=== PATIENT | female | born 1990 | race Caucasian/White ===

== ENCOUNTER → 2018-10-03 | Outpatient (CLI) | payer OTHER ==
--- NOTE | 2018-10-03 15:32 | US ---
EXAMINATION TYPE: Transabdominal DATE OF EXAM: 02/14/18 COMPARISON: NONE CLINICAL HISTORY: Z36 Confirm Dates. EXAM PERFORMED: Transabdominal (TA) EXAM MEASUREMENTS: GESTATIONAL AGE / DATING Physician Established: Not yet established Dates by LMP: ( 9 weeks/4 days) EDC: 05/04/19 Dates by First Scan: No previous this is first scan Dates by Current Scan for: (9 weeks/1 days) EDC: 05/07/19 MATERNAL ANATOMY Uterus: 13.5 x 8.0 x 5.4cm Right Ovary: 2.8 x 1.5 x 1.3cm Left Ovary: 3.1 x 2.2 x 1.9cm Post CDS / Adnexa: wnl Presence of free fluid: no GESTATION / SURVEY CRL: 2.4cm ( 9 weeks/1 days) Yolk Sac (normal less than 6mm): 2mm Heart Rate: 173 bpm Rhythm: Normal IUP: Live IUP Date of LMP: 05/04/19 IMPRESSION: Single live intrauterine with a sonographic age of 9 weeks and 1 day and estimated date of delivery of 05/07/2019, concordant with menstrual age.
== END | disposition home or self-care (01) ==
LOC: RADUSWWP 13:35
PROVIDERS: ATTEND Obstetrics & Gynecology
DX: Z36.9 Encounter for antenatal screening, unspecified (principal)
CPT/HCPCS: 76801

== ENCOUNTER 2019-04-24 03:07 | Inpatient (IN) | payer OTHER ==
[2019-04-24] MEDS ORDERED: LIDOCAINE 0.5% (PF) 5 MG/ML (50 ML SDV) SQ PRN (03:37)
[2019-04-24] MEDS ORDERED: CARBOPROST TROMETHAMINE 250 MCG/ML 1 ML AMP IM PRN (03:37)
[2019-04-24] MEDS ORDERED: OXYTOCIN 10 UNIT/ML 1 ML VIAL IM PRN (03:37)
[2019-04-24] MEDS ORDERED: METHYLERGONOVINE 0.2 MG/ML 1 ML AMP IM PRN (03:37)
[2019-04-24] MEDS ORDERED: TERBUTALINE 1 MG/ML VIAL SQ PRN (03:37)
[2019-04-24] MEDS: LACTATED RINGERS 1,000 ML IV SCH ×2 (03:55→06:24)
[2019-04-24] MEDS ORDERED: BUTORPHANOL 1 MG/ML 1 ML VIAL IV PRN (04:09)
[2019-04-24 04:21] LABS: Basophils % (A) 0 %; Eosinophils # (A) 0.2 k/uL (0-0.7); Eosinophils % (A) 1 %; HCT 36.7 % (34.0-46.0); Lymphocytes # (A) 2.6 k/uL (1.0-4.8); Lymphocytes % (A) 22 %; MCH 28.8 pg (25.0-35.0); MCHC 32.8 g/dL (31.0-37.0); MCV 87.8 fL (80.0-100.0); Mean Platelet Volume 8.5; Monocytes # (A) 0.5 k/uL (0-1.0); Monocytes % (A) 5 %; Neutrophils # (A) 8.4 k/uL (1.3-7.7); Neutrophils % (A) 70 %; Platelet Count 258 k/uL (150-450); RBC 4.18 m/uL (3.80-5.40); RDW 14.3 % (11.5-15.5); WBC 11.9 k/uL (3.8-10.6)
[2019-04-24 04:51] VITALS: BMI 27.6
[2019-04-24] MEDS ORDERED: OXYTOCIN 30 UNITS/500 ML NS 30 UNIT in SALINE 1 500ML.BAG IV SCH (06:00)
[2019-04-24] MEDS ORDERED: ROPIVACAINE 5MG/ML 20ML VIAL ONE (06:30)
[2019-04-24] MEDS ORDERED: fentaNYL (PF) 50 MCG/ML 5 ML AMP ONE (06:30)
[2019-04-24] MEDS ORDERED: SODIUM CHLORIDE 0.9% 100 ML BAG ONE (06:30)
[2019-04-24] MEDS ORDERED: ROPIVACAINE 100 MG, fentaNYL (PF) 200 MCG in SODIUM CHLORIDE 0.9% 76 ML EPIDURAL ONE (06:53)
--- NOTE | 2019-04-24 07:12 | P.HPOB ---
History of Present Illness H&P Date: 04/24/19 Chief Complaint: SROM 28 year old presents at 38 weeks 3 days with SROM. HEr cervix was 1/60/-2 and she was chacorta every 2-4 minutes. heart tones 130's with moderate variability. Review of Systems All systems: negative Constitutional: Denies chills, Denies fever Eyes: denies blurred vision, denies pain Ears, nose, mouth and throat: Denies headache, Denies sore throat Cardiovascular: Denies chest pain, Denies shortness of breath Respiratory: Denies cough Gastrointestinal: Denies abdominal pain, Denies diarrhea, Denies nausea, Denies vomiting Genitourinary: Denies dysuria, Denies hematuria Musculoskeletal: Denies myalgias Integumentary: Denies pruritus, Denies rash Neurological: Denies numbness, Denies weakness Psychiatric: Denies anxiety, Denies depression Endocrine: Denies fatigue, Denies weight change Past Medical History Past Medical History: No Reported History Additional Past Medical History / Comment(s): OB history: first was a vaginal delivery. This is her second and she has been seeing DR Garcia. O+, abs neg, Rub Imm, RPR NR, HEp B neg, HIV NR. GBS neg. History of Any Multi-Drug Resistant Organisms: None Reported Past Surgical History: No Surgical Hx Reported Past Psychological History: No Psychological Hx Reported Smoking Status: Never smoker Past Alcohol Use History: None Reported Past Drug Use History: None Reported - Past Family History Father Family Medical History: Hypertension Medications and Allergies Home Medications Medication Instructions Recorded Confirmed Type Pnv No.95/Ferrous Fum/Folic AC 1 each PO DAILY 04/24/19 04/24/19 History [ Multivitamin Tablet] Allergies Allergy/AdvReac Type Severity Reaction Status Date / Time No Known Allergies Allergy Verified 04/24/19 03:16 Exam Osteopathic Statement: *. No significant issues noted on an osteopathic structural exam other than those noted in the History and Physical/Consult. Vital Signs Temp Pulse Resp BP 04/24/19 04:43 98.4 F 78 18 119/82 04/24/19 04:40 98.4 F 78 18 119/82 Intake and Output 04/23/19 04/24/19 04/24/19 22:59 06:59 14:59 Intake Total 1000 Balance 1000 Intake: Intake, IV Titration 1000 Amount Lactated Ringers 1,000 ml 1000 @ 125 mls/hr IV .Q8H YULI Rx#:[id number] Other: # Voids 2 Weight 70.76 kg HEart: RRR Lungs: CTAB ABdomen: soft, nontender Extremeties: neg juli's Results Result Diagrams: 04/24/19 03:55 Abnormal Lab Results - Last 24 Hours (Table) 04/24/19 Range/Units 03:55 WBC 11.9 H (3.8-10.6) k/uL Neutrophils # 8.4 H (1.3-7.7) k/uL Assessment and Plan (1) Spontaneous rupture of membranes Current Visit: Yes Status: Acute Code(s): [id number] - SNOMED Code(s): 150560622 Plan: 1. admit to [facility] 2. expectant management 3. anticipate normal vaginal delivery
[2019-04-24] MEDS ORDERED: ACETAMINOPHEN TAB 325 MG TAB PO PRN (10:32)
[2019-04-24] MEDS ORDERED: WITCH HAZEL 1 EACH MED..PAD TOPICAL PRN (10:32)
[2019-04-24] MEDS ORDERED: LANOLIN CREAM 5 GM TUBE TOPICAL PRN (10:32)
[2019-04-24] MEDS ORDERED: diphenhydrAMINE 25 MG CAP PO PRN (10:32)
[2019-04-24] MEDS ORDERED: diphenhydrAMINE 50 MG/ML 1 ML VIAL IVP PRN ×2 (10:32)
[2019-04-24] MEDS ORDERED: HYDROCORTISONE 2.5% RECTAL CREAM 30 GM TUBE RECTAL PRN (10:32)
[2019-04-24] MEDS ORDERED: diphenhydrAMINE 50 MG CAP PO PRN (10:32)
[2019-04-24] MEDS ORDERED: ZOLPIDEM 5 MG TAB PO PRN (10:32)
[2019-04-24] MEDS ORDERED: SIMETHICONE 80 MG CHEWABLE PO PRN (10:32)
[2019-04-24] MEDS ORDERED: BENZOCAINE/MENTHOL SPRAY 1 GM/SPRAY AEROSOL TOPICAL PRN (10:32)
[2019-04-24] MEDS ORDERED: OXYTOCIN 20 UNITS/1000 ML NS 1,000 ML IV SCH (10:45)
[2019-04-24] MEDS: IBUPROFEN 600 MG TAB PO PRN ×2 (11:41→18:08)
--- NOTE | 2019-04-24 12:50 | P.PROBDLV ---
Vaginal Delivery Note - . Vaginal Delivery Note: The patient progressed to complete dilation after spontaneous rupture of membranes with clear fluid noted. She did receive epidural anesthesia. Once reaching complete dilation, she began pushing. Infant's head came to a crown. With one further push, the infant's head delivered across the perineum followed by the anterior shoulder. Nose and mouth were bulb suctioned. With one further push, the remainder the infant easily delivered and was placed on mother's abd omen. Cord was clamped and cut and was taken to warmer for evaluation. A viable female was noted with scores of 8 at 1 minute and 9 at 5 minutes and weight was 8 lbs. 6 oz. Placenta delivered shortly thereafter, intact, with a three-vessel cord. Uterus contracted fairly well after oxytocin was given and uterine massage was carried out. Inspection of the perineum revealed a second-degree perineal laceration. This area was anesthetized with 1% lidocaine and then sutured with 3-0 and 2-0 Vicryl suture in the usual multilayer fashion. Estimated blood loss is approximately 150 mL's. Both mother and infant are in stable condition.
--- NOTE | 2019-04-24 12:54 | P.MSEPDOC ---
Presenting Problems - Arrival Data Date of Arrival on Unit: 04/24/19 Time of Arrival on Unit: 03:00 Mode of Transport: Wheelchair - Complaint OB-Reason for Admission/Chief Complaint: Rule Out SROM Comment: pt had SROM at 0200 this am, clear fluid, still leaking fluid Medical History - Information : 2 Para: 1 Term: 1 : 0 Abortions: Spontaneous or Elective: 0 Number of Living Children: 1 - Gestational Age Gestational Age by ADRIANA (wks/days): 38 Weeks and 4 Days Review of Systems - Review of Systems Constitutional: No problems Breast: No problems ENT: No problems Cardiovascular: No problems Respiratory: No problems Gastrointestinal: No problems Genitourinary: No problems Musculoskeletal: No problems Neurological: No problems Skin: No problems Vital Signs - Temperature Temperature: 97.5 F Temperature Source: Temporal Artery Scan - Pulse Right Brachial Pulse Rate: 88 Pulse Assessment Method: Auscultation - Respirations Respiratory Rate: 18 Oxygen Delivery Method: Room Air - Blood Pressure Right Arm Blood Pressure: 123/71 Blood Pressure Mean: 88 Blood Pressure Source: Automatic Cuff Medical Screen Scoring (Pre) - Cervical Exam Dilation: 1-3 cm = 1 Effacement: More than 50% = 2 Membranes: Ruptured = 3 - Uterine Contractions Frequency: > or = 36 weeks =2 Duration: > 40 seconds = 2 Intensity: Contraction palpated strong = 1 - Maternal Vital Signs Maternal Temperature: N/A Maternal Blood Pressure: N/A Signs of Preeclampsia: N/A Maternal Respirations: N/A - Maternal Trauma Maternal Trauma: N/A - Assessment - Baby A Baseline FHR: 120 Heart Rate - NICHD Category: Category I (Normal) = 0 NST: Reactive Position: N/A Station: N/A - Total Score - Baby A Total Score - Baby A: 11 - Total Score - Baby B Total Score - Baby B: 11 - Total Score - Baby C Total Score - Baby C: 11 - Level of Risk - Baby A Level of Risk - Baby A: High (10+) - Level of Risk - Baby B Level of Risk - Baby B: High (10+) - Level of Risk - Baby C Level of Risk - Baby C: High (10+) Physician Notification (Pre) - Physician Notified Physician Notified Date: 04/24/19 Physician Notified Time: 03:25 Physician/Practitioner Notifed:: Dr. Yang Spoke With: Dr. Yang New Order Received: Yes - Notification Comment Comment: admit for labor Disposition - Disposition OB Disposition: Admit, LDRP Suite I agree with the RN Medical Screening Exam: Yes Risk & Benefit of care provided described in d/c instruction: Yes Diagnosis: ENCOUNTER FOR FULL-TERM UNCOMPLICATED DELIVERY
[2019-04-25] MEDS: IBUPROFEN 600 MG TAB PO PRN (00:02)
[2019-04-25] MEDS: SENNOSIDES-DOCUSATE SODIUM 1 EACH TAB PO SCH ×2 (00:07→07:35)
[2019-04-25 04:29] VITALS: PULSE 85
[2019-04-25 07:57] LABS: Basophils % (A) 0 %; Eosinophils # (A) 0.1 k/uL (0-0.7); Eosinophils % (A) 1 %; HGB 11.5 gm/dL (11.4-16.0); Lymphocytes # (A) 2.4 k/uL (1.0-4.8); Lymphocytes % (A) 14 %; MCV 90.6 fL (80.0-100.0); Mean Platelet Volume 8.8; Monocytes # (A) 0.7 k/uL (0-1.0); Monocytes % (A) 4 %; Neutrophils # (A) 13.1 k/uL (1.3-7.7); Neutrophils % (A) 80 %; Platelet Count 238 k/uL (150-450); RBC 3.98 m/uL (3.80-5.40); WBC 16.4 k/uL (3.8-10.6)
[2019-04-25 08:25] VITALS: BP 121/76; RESP 15; TEMP 97.5
--- NOTE | 2019-04-25 08:51 | P.DS ---
Providers Date of admission: 04/24/19 03:26 Expected date of discharge: 04/25/19 Attending physician: Carmen Garcia Primary care physician: Stated None Hospital Course: This is a 28-year-old female 2 para 1 at 38-4/7 weeks who presented with spontaneous rupture of membranes. She delivered vaginally a viable female on 04/24/2019 with scores of 8 at 1 minute and 9 at 5 minutes and infant weight of 8 lbs. 6 oz. Her course has been uncomplicated. Lochia is decreasing. Pain is fairly well controlled with ibuprofen. She is breast-feeding. Vital signs are stable. Abdomen soft with fundus firm and nont vanessa. Extremities show negative Homans. Impression is status post vaginal delivery day #1. Plan is to discharge home today. Routine instructions are given. She is advised to follow up in the office in 6 weeks for check. She is advised to call the office if she has any further questions or concerns prior to her appointment time. She will be given a prescription for breast pump and some ibuprofen. Procedures: Spontaneous vaginal delivery of a viable female on 04/24/2019 Patient Condition at Discharge: Stable Plan - Discharge Summary New Discharge Prescriptions: New Ibuprofen [Motrin] 600 mg PO Q6HR PRN #60 tab PRN Reason: Mild Pain Or Fever >= 100.5 Continue Pnv No.95/Ferrous Fum/Folic AC [ Multivitamin Tablet] 1 each PO DAILY Discharge Medication List Pnv No.95/Ferrous Fum/Folic AC [ Multivitamin Tablet] 1 each PO DAILY 04/24/19 [History] Ibuprofen [Motrin] 600 mg PO Q6HR PRN #60 tab 04/25/19 [Rx] Follow up Appointment(s)/Referral(s): Carmen Garcia DO [Doctor of Osteopathic Medicine] - 6 Weeks Activity/Diet/Wound Care/Special Instructions: Instructions 1. Do not begin any exercise program for 3 weeks. 2. Do not resume sexual relations for 3 weeks or longer if uncomfortable. 3. You may take tub baths or showers at any time. 4. You may use tampons if desired after 3 weeks. 5. Keep the area of episiotomy (stitches) clean and dry. 6. If you are not nursing, wear a good fitting, supportive bra during the day and limit fluid intake for at least 1 week to prevent breast engorgement. 7. Call the office, [phone], within the next week to make appointment for your 6 week checkup if it has not already been made. 8. Report any of the following occurrences to the doctor promptly: a. Heavy, excessive bleeding b. Chills, fever c. Burning or frequency of urination d. Pain or redness and breasts if nursing e. Increasing pain or swelling in episiotomy (stitches). In addition to the above instructions, the following additional should be followed: 1. No heavy lifting or straining (exercising) until after 6 week checkup. 2. Keep abdominal incision clean and dry: You may wear a dressing if more comfortable. 3. Make office appointment for 10 days after going home or as instructed by her doctor. Discharge Disposition: HOME SELF-CARE
== END 2019-04-25 12:30 | disposition home or self-care (01) | DRG 807 ==
LOC: FBPOP 03:07 → 4FBP 03:26
PROVIDERS: ADMIT Obstetrics & Gynecology; ATTEND Obstetrics & Gynecology
PROC: 10E0XZZ Delivery of Products of Conception, External Approach (ICD-10-PCS; principal; 2019-04-24)
PROC: 0KQM0ZZ Repair Perineum Muscle, Open Approach (ICD-10-PCS; 2019-04-24)
DX: O70.1 Second degree perineal laceration during delivery (principal); Z37.0 Single live birth; Z3A.38 38 weeks gestation of pregnancy; Z82.49 Family history of ischemic heart disease and other diseases of the circulatory system
CPT/HCPCS: 59025; 85025; 86850; 86900; 86901; 99213